=== PATIENT | female | born 1965 | race Caucasian/White ===

== ENCOUNTER → 2017-01-21 | Outpatient (CLI) | payer BC ==
--- NOTE | 2017-01-21 08:03 | DIAGNOSTIC IMAGING REPORT ---
MRI left knee LEFT LOWER EXT JOINT WITHOUT CLINICAL HISTORY: LEFT KNEE PAIN pain TECHNIQUE: MRI multi axial acquisition COMPARISON STUDY: None FINDINGS: Signal characteristics the osseous structures are unremarkable. No evidence for bone marrow replacing process. Mild edematous change of the infrapatellar fat pad. Partial tear anterior cruciate ligament. Posterior cruciate ligament is intact. Evaluation of the menisci shows medial as well as lateral meniscus to be unremarkable in overall signal character and configuration. Medial and lateral collateral ligament are intact. IMPRESSION: 1. Partial tear anterior cruciate ligament which may be in part chronic due to the lack of surrounding edema. 2. Mild edema of the infrapatellar fat pad. 3. Otherwise negative study. Electronically signed by: Mikael Carranza M.D. 01/21/2017 8:02 AM Dictated Date/Time: 01/21/2017 7:45 AM
== END | disposition home or self-care (01) ==
LOC: C.MRIBC 06:52
PROVIDERS: ATTEND Orthopaedic Surgery
DX: S83.512A Sprain of anterior cruciate ligament of left knee, initial encounter (principal); M25.562 Pain in left knee; X58.XXXA Exposure to other specified factors, initial encounter